=== PATIENT | female | born 1960 | race Caucasian/White ===

== ENCOUNTER → 2017-02-23 | Outpatient (CLI) | payer BC ==
[~2017-02-23] MED LIST: LORTAB 7.5/5001 TAB PO; NO HOME MEDICATIONS; PREMARIN .3MG0.3 MG PO
== END ==
LOC: MC.RAD 07:40
DX: Z12.31 Encounter for screening mammogram for malignant neoplasm of breast (principal)

== ENCOUNTER → 2017-09-16 | Outpatient (CLI) | payer BC | LOC: COL.RAD 12:38 | DX: J98.4 Other disorders of lung (principal); K76.89 Other specified diseases of liver; Z86.718 Personal history of other venous thrombosis and embolism | CPT/HCPCS: Q9967 ==

== ENCOUNTER → 2018-02-24 | Outpatient (CLI) | payer BC | LOC: MC.RAD 01-24 11:00 | DX: Z12.31 Encounter for screening mammogram for malignant neoplasm of breast (principal) ==

== ENCOUNTER → 2018-03-02 | Outpatient (CLI) | payer BC | LOC: MC.RAD 08:09 | DX: R92.8 Other abnormal and inconclusive findings on diagnostic imaging of breast (principal) ==

== ENCOUNTER → 2018-09-01 | Outpatient (CLI) | payer BC | LOC: MC.RAD 08:09 | DX: R92.8 Other abnormal and inconclusive findings on diagnostic imaging of breast (principal) | CPT/HCPCS: G0279 ==

== ENCOUNTER → 2019-02-27 | Outpatient (CLI) | payer BC | LOC: MC.RAD 07:54 | DX: R92.2 Inconclusive mammogram (principal) | CPT/HCPCS: G0279 ==

== ENCOUNTER → 2020-02-29 | Outpatient (CLI) | payer OTHER | LOC: MC.RAD 10:28 | DX: Z12.31 Encounter for screening mammogram for malignant neoplasm of breast (principal) ==

== ENCOUNTER → 2021-03-03 | Outpatient (CLI) | payer OTHER | LOC: MC.RAD 07:27 | DX: Z12.31 Encounter for screening mammogram for malignant neoplasm of breast (principal) ==

== ENCOUNTER → 2022-03-04 | Outpatient (CLI) | payer OTHER | LOC: MC.RAD 09:54 | DX: Z12.31 Encounter for screening mammogram for malignant neoplasm of breast (principal) ==

== ENCOUNTER → 2023-04-12 | Outpatient (CLI) | payer OTHER ==
[~2023-04-12] MED LIST changes: +COZAAR 50MG50 MG/TAB PO
== END ==
LOC: CANSCHCLI → MC.RAD 08:18
DX: Z12.31 Encounter for screening mammogram for malignant neoplasm of breast (principal)

== ENCOUNTER 2023-07-15 13:59 | Emergency (ER) | payer OTHER ==
[~2023-07-15] VITALS: Ht 170.2 cm; Wt 75.0 kg
[2023-07-15 14:04] VITALS: TEMP 97.5
[2023-07-15 14:30] LABS: BASO % 0.3 % (0.0-2.0); EOS # 0.2 K/mm3 (0.0-0.7); EOS % 1.6 % (0.0-4.0); GRAN # 9.2 K/mm3 (1.4-6.5); GRAN % 75.6 % (42.2-75.2); HEMOGLOBIN 11.9 g/dl (12.5-16.0); LYMPH # 1.9 K/mm3 (1.2-3.4); LYMPH % 15.7 % (20.0-51.0); MEAN CELL VOLUME 87 fl (80.0-100.0); MEAN CORPUSCULAR HEMOGLOBIN 28 pg (27-31); MEAN CORPUSCULAR HGB CONC 33 g/dl (33.0-37.0); MONO # 0.8 K/mm3 (0.1-0.6); MONO % 6.4 % (1.7-9.3); PLATELET COUNT 312 K/mm3 (130-400); RED BLOOD COUNT 4.21 M/mm3 (4.10-5.30); REDCELL DISTRIBUTION WIDTH-CV 11.6 % (11.5-14.5)
[2023-07-15 14:31] LABS: HEMATOCRIT 36.5 % (37.0-47.0)
[2023-07-15 14:46] LABS: ALANINE AMINOTRANSFERASE 18 U/L (0-55); ALBUMIN 4.3 gm/dL (3.4-4.8); ALKALINE PHOSPHATASE 90 U/L (40-150); ANION GAP 14 mmol/L (7-16); AST,SGOT 19 U/L (5-34); BILIRUBIN,TOTAL 0.5 mg/dL (0.2-1.2); BLOOD UREA NITROGEN 21 mg/dL (10-20); CALCIUM 9.9 mg/dL (8.4-10.2); CARBON DIOXIDE 21 mmol/L (23-31); CHLORIDE 108 mmol/L (98-107); CREATININE, serum 0.87 mg/dL (0.57-1.11); GLUCOSE 104 mg/dL (70-99); SODIUM 143 mmol/L (136-145); TOTAL PROTEIN 7.8 gm/dL (6.2-8.1)
[2023-07-15 14:53] LABS: TROPONIN-I < 0.010 ng/mL (0.00-0.033)
[2023-07-15 16:40] VITALS: BP 137/90; PULSE 82
[2023-07-15] MEDS ORDERED: ZOFRAN ODT4 MG PO (16:44)
== END 2023-07-15 16:40 | disposition home or self-care (01) ==
LOC: COL.ER 13:59
PROVIDERS: Emergency Medicine
DX: I49.3 Ventricular premature depolarization (principal); D72.829 Elevated white blood cell count, unspecified; Z86.16 Personal history of COVID-19

== ENCOUNTER 2023-08-03 07:00 | Day surgery (SDC) | payer BC ==
[~2023-08-03] VITALS: Ht 170.3 cm; Wt 77.2 kg
[2023-08-03] VITALS (10 sets, daily range): BP systolic 124–144; BP diastolic 80–90; PULSE 76–88; TEMP 97.8
[~2023-08-03 07:00] MED LIST changes: +ZOFRAN ODT4 MG PO
[2023-08-03] MEDS ORDERED: 1/2 NS 1,000 ML IV SCH (07:15)
[2023-08-03 07:55] LABS: HEMOGLOBIN 10.8 g/dl (12.5-16.0); MEAN CELL VOLUME 88 fl (80.0-100.0); MEAN CORPUSCULAR HEMOGLOBIN 27 pg (27-31); MEAN CORPUSCULAR HGB CONC 31 g/dl (33.0-37.0); MEAN PLATELET VOLUME 9.7 fl (7.4-10.4); PLATELET COUNT 210 K/mm3 (130-400); RED BLOOD COUNT 3.95 M/mm3 (4.10-5.30); REDCELL DISTRIBUTION WIDTH-CV 12.1 % (11.5-14.5)
[2023-08-03 07:56] LABS: HEMATOCRIT 34.6 % (37.0-47.0)
[2023-08-03 08:06] LABS: INR 1.1 (0.8-3.0); PROTHROMBIN TIME 12.4 SECONDS (9.7-12.8)
[2023-08-03] MEDS ORDERED: PROTONIX 40MG T40 MG PO (08:06)
[2023-08-03] MEDS ORDERED: LIPITOR20 MG PO (08:06)
[2023-08-03] MEDS ORDERED: MAG-OX 400400 MG/TAB PO (08:07)
[2023-08-03 08:09] LABS: CALCIUM 9.5 mg/dL (8.4-10.2); CREATININE, serum 0.81 mg/dL (0.57-1.11); POTASSIUM 4.4 mmol/L (3.5-4.5)
[2023-08-03] MEDS ORDERED: Nitroglycerin 2% Topical Oint 1 GM UD TD SCH (08:16)
--- NOTE | 2023-08-03 09:13 | NUR ---
Refer to [facility] report for procedural sedation/notes
[2023-08-03] MEDS ORDERED: niCARdipine (Cath Lab) 100 MCG/ML 10 ML VIAL INCOR SCH (09:34)
[2023-08-03] MEDS ORDERED: Heparin 1,000 UNITS/ML 10 ML Multi-Dose VIAL IV SCH (09:35)
[2023-08-03] MEDS ORDERED: fentaNYL 50 MCG/ML 2 ML VIAL IV SCH (09:35)
[2023-08-03] MEDS ORDERED: Midazolam 2 MG/2 ML VIAL IV SCH (09:36)
[2023-08-03] MEDS ORDERED: Iohexol 350 - 100 ML VIAL INCOR ONE (09:37)
--- NOTE | 2023-08-03 10:00 | NUR ---
pt arrived via bed to room from lab specialist, awake and alert, in room, call light in reach. site to radial is clean and dry. reviewed activity with pt, takes snack and drink
[2023-08-03] MEDS ORDERED: Acetaminophen 325 MG TAB PO PRN (10:30)
--- NOTE | 2023-08-03 10:45 | NUR ---
pt c/o mild h/a, states had slight h/a on arrival, took snack with no change, tylenol 2 tabs given as ordered, no other changes
--- NOTE | 2023-08-03 11:30 | NUR ---
PT HAS NO FURTHER C/O, TAKES SNACK AND DRINK IN ROOM, CON'T SAME, NO REQUESTS
--- NOTE | 2023-08-03 12:00 | NUR ---
RELEASED TOTAL OF 4CC OVER 15MIN, HAD SOME OOZING AT SITE, AIR REPLACED, NO FURTHER BLEEDING, WILL CON'T TO MONITOR FOR 30 MIN, CHEST X-RAY DONE AND DR PARR INTO SEE PT
--- NOTE | 2023-08-03 13:00 | NUR ---
STARTED TO RELEASE BAND SLOWLY, 2CC AT A TIME OVER 30 MIN WITH NO OOZING, BLEEDING OR SWELLING TO SITE, BANDAID PLACED OVER SITE, WITH COBAN FOR SUPPORT PT SITS ON SIDE OF BED, TOLERATES WELL
--- NOTE | 2023-08-03 14:00 | NUR ---
IV D'CD INTACT, PT UP AND WALKING, REVIEWED DISCHARGE INST. WITH PT ON MODERATE SEDATION, AND CARE OF SITE WITH ALL RESTRICTIONS WITH VERBAL UNDERSTANDING. WAITS FOR DISCHARGE ORDERS
[2023-08-03] MEDS ORDERED: CELEBREX 200MG200 MG PO (14:38)
--- NOTE | 2023-08-03 14:40 | NUR ---
PATIENT SUMMARY, NEW MED WITH INFORMATION GIVEN AND APPT, PT THEN DISCHARGED VIA W/C TO CAR WITH AT 1450
== END 2023-08-03 14:50 | disposition home or self-care (01) ==
LOC: COL.CAR 07:00
PROVIDERS: Internal Medicine Cardiovascular Disease
DX: I20.0 Unstable angina (principal)
CPT/HCPCS: C1769; J1644; J2250; J2404; J3010; Q9967